=== PATIENT | female | born 1995 | race Caucasian/White ===

== ENCOUNTER 2017-10-13 15:00 | Emergency (ER) | payer OTHER, MEDICAID ==
[2017-10-13] MEDS: HYDROCODONE/APAP (5/325) TAB PO (15:44)
[2017-10-13] MEDS: KETOROLAC 60 MG INJ IM (15:44)
== END 2017-10-13 17:45 | disposition home or self-care (01) ==
LOC: FTE 15:00
DX: M54.2 Cervicalgia (principal); M54.6 Pain in thoracic spine
CPT/HCPCS: 72040; 72072; 96372; 99284-25

== ENCOUNTER 2017-11-26 17:25 | Emergency (ER) | payer OTHER ==
[2017-11-26 20:59] LABS: URINE PH (Dip) POC 7.5 (5.0-8.5)
[2017-11-26 20:59] LABS: URINE BLOOD (Dip) POC Negative (NEGATIVE); URINE GLUCOSE (Dip) POC Negative (NEGATIVE); URINE KETONES (Dip) POC Negative (NEGATIVE); URINE LEUKOCYTE EST (Dip) POC Negative (NEGATIVE); URINE NITRITE (Dip) POC Negative (NEGATIVE); URINE TOTAL PROTEIN POC 1+ (NEGATIVE)
[2017-11-26] MEDS: METOCLOPRAMIDE 10 MG INJ IV (21:05)
[2017-11-26] MEDS: DIPHENHYDRAMINE 50 MG INJ IV (21:10)
[2017-11-26] MEDS: KETOROLAC 30 MG INJ IV (21:11)
== END 2017-11-26 21:57 | disposition home or self-care (01) ==
LOC: FTE 17:25
DX: R51 Headache (principal); R11.2 Nausea with vomiting, unspecified
CPT/HCPCS: 81003; 81025; 96374; 96375; 99284-25

== ENCOUNTER 2018-08-14 10:30 | Emergency (ER) | payer OTHER ==
[2018-08-14] MEDS: SOD CHLORIDE 0.9% 1,000 ML IV (11:43)
[2018-08-14] MEDS: morphine 4 MG/ML VIAL IV (11:43)
[2018-08-14] MEDS: ONDANSETRON 4 MG INJ IV (11:43)
[2018-08-14 11:47] LABS: ADD MAN DIFF? NO
[2018-08-14 11:50] LABS: BASOPHILS % 0.2 % (0.0-2.0); HEMATOCRIT 41.5 % (37.0-47.0); HEMOGLOBIN 14.2 g/dl (12.0-16.0); LYMPHOCYTES # 1.8 10^3/ul (0.8-2.9); LYMPHOCYTES % 10.3 % (15.0-51.0); MEAN CORPUSCULAR HEMOGLOBIN 30.7 pg (29.0-33.0); MEAN CORPUSCULAR HGB CONC 34.2 g/dl (32.0-37.0); MEAN CORPUSCULAR VOLUME 89.8 fl (82.0-101.0); MEAN PLATELET VOLUME 10.1 fl (7.4-10.4); MONOCYTE # 0.2 10^3/ul (0.3-0.9); MONOCYTES % 0.9 % (0.0-11.0); NEUTROPHIL # 15.5 10^3/ul (1.6-7.5); NEUTROPHILS % 88.1 % (39.0-77.0); PLATELET COUNT 394 10^3/UL (140-415); RED BLOOD COUNT 4.62 10^6/ul (4.20-5.40)
[2018-08-14 11:50] LABS: WHITE BLOOD COUNT 17.5 10^3/ul (4.8-10.8)
[2018-08-14 12:03] LABS: ADD UMIC YES; UR ASCORBIC ACID NEGATIVE (NEGATIVE); UR BACTERIA FEW /HPF (NONE SEEN); UR BILIRUBIN (Dip) NEGATIVE (NEGATIVE); UR BLOOD (Dip) 3+ mg/dL (NEGATIVE); UR CLARITY SLIGHTLY CLOUDY (CLEAR); UR COLOR YELLOW (YELLOW); UR GLUCOSE (Dip) NEGATIVE (NEGATIVE); UR KETONES (Dip) TRACE mg/dL (NEGATIVE); UR LEUKOCYTE ESTERASE (Dip) NEGATIVE Leu/ul (NEGATIVE); UR NITRITE (Dip) NEGATIVE (NEGATIVE); UR RBC 6 /HPF (0-5); UR SPECIFIC GRAVITY (Dip) 1.011 (1.003-1.030); UR SQUAMOUS EPITHELIAL CELL FEW /HPF (FEW); UR TOTAL PROTEIN (Dip) NEGATIVE (NEGATIVE); UR UROBILINOGEN (Dip) NEGATIVE (NEGATIVE); UR WBC 2 /HPF (0-5)
[2018-08-14 12:21] LABS: ALANINE AMINOTRANSFERASE 25 IU/L (13-69); ALBUMIN 4.6 g/dl (3.3-4.9); ALBUMIN/GLOBULIN RATIO 1.39; ALKALINE PHOSPHATASE 70 IU/L (42-121); ANION GAP 17 (5-13); ASPARTATE AMINO TRANSFERASE 31 IU/L (15-46); BILIRUBIN,INDIRECT 0.1 mg/dl (0-1.1); BILIRUBIN,TOTAL 0.1 mg/dl (0.2-1.3); BLOOD UREA NITROGEN 10 mg/dl (7-20); CALCIUM 8.7 mg/dl (8.4-10.2); CARBON DIOXIDE 20 mmol/L (21-31); CHLORIDE 115 mmol/L (97-110); CREATININE 0.59 mg/dl (0.44-1.00); Estimated GFR > 60 mL/min (>60); GLUCOSE 130 mg/dl (70-220); LIPASE 33 U/L (23-300); SODIUM 152 mmol/L (135-144); TOTAL PROTEIN 7.9 g/dl (6.1-8.1)
== END 2018-08-14 13:50 | disposition home or self-care (01) ==
LOC: FTE 10:30
DX: R10.13 Epigastric pain (principal); R11.10 Vomiting, unspecified
CPT/HCPCS: 36415; 74018; 80053; 81001; 81025; 83690; 85025; 96361; 96374; 96375; 99284-25

== ENCOUNTER 2018-08-14 16:40 | Emergency (ER) | payer SELFPAY, OTHER | END 2018-08-14 21:08 | disposition left against medical advice (07) | LOC: FTE 16:40 | DX: Z53.21 Procedure and treatment not carried out due to patient leaving prior to being seen by health care provider (principal) ==